=== PATIENT | female | born 1995 | race Caucasian/White ===

== ENCOUNTER → 2017-05-19 11:56 | Outpatient (CLI) | payer OTHER | END | disposition home or self-care (01) | LOC: D.US 11:30 | DX: O26.899 Other specified pregnancy related conditions, unspecified trimester (principal) ==

== ENCOUNTER → 2017-07-14 11:59 | Outpatient (CLI) | payer OTHER ==
[~2017-07-14 11:59] MED LIST: IBUPROFEN800 MG PO
[2017-09-18 05:11] VITALS: BMI 28.3
== END | disposition home or self-care (01) ==
LOC: D.US 11:59
DX: Q37.9 Unspecified cleft palate with unilateral cleft lip (principal)

== ENCOUNTER → 2017-08-18 12:01 | Outpatient (CLI) | payer OTHER, MEDICAID ==
[2017-09-18 05:11] VITALS: BMI 28.3
== END | disposition home or self-care (01) ==
LOC: D.US 11:30
DX: O35.8XX0 Maternal care for other (suspected) fetal abnormality and damage, not applicable or unspecified (principal); Z3A.00 Weeks of gestation of pregnancy not specified

== ENCOUNTER → 2017-09-16 10:40 | Outpatient (CLI) | payer OTHER, MEDICAID ==
[2017-09-18 05:11] VITALS: BMI 28.3
== END | disposition home or self-care (01) ==
LOC: D.LDO 10:40
DX: O48.0 Post-term pregnancy (principal); Z3A.40 40 weeks gestation of pregnancy

== ENCOUNTER 2017-09-18 04:57 | Inpatient (IN) | payer OTHER, MEDICAID ==
[~2017-09-18] VITALS: Ht 165.1 cm; Wt 77.1 kg
[2017-09-18 05:11] VITALS: BP 101/67; Ht 165.1 cm; Wt 77.1 kg
[2017-09-18 06:52] LABS: HEMATOCRIT 36.8 % (36.0-48.0); HEMOGLOBIN 12.6 g/dL (12-16); MCHC 34.2 g/dL (31.0-37.0); MCV 87.6 fL (80.0-100.0); MEAN PLATELET VOLUME 10.7 fL (7.4-10.4); RBC 4.2 10x6/uL (4.00-5.40); RDW 13.8 % (11.5-14.5); WBC 7.3 10x3/uL (4.8-10.8)
[2017-09-18 08:11] LABS: APPEARANCE HAZY (CLEAR); BILIRUBIN NEGATIVE (NEGATIVE); COLOR YELLOW (YELLOW); GLUCOSE NEGATIVE (NEGATIVE); KETONE NEGATIVE (NEGATIVE); NITRITE NEGATIVE (NEGATIVE); PROTEIN 1+ mg/dL (NEGATIVE)
[2017-09-18 08:12] LABS: BACTERIA MANY /hpf (NONE SEEN); MUCUS >1+ /lpf (NONE SEEN); RED CELLS - URINE RARE /hpf (0-5)
--- NOTE | 2017-09-18 19:00 | NUR ---
PATIENT REPORT RECIEVED FROM AM SHIFT TO ASSUME PATIENT CARE.
--- NOTE | 2017-09-18 19:54 | NUR ---
TYLENOL 3 ONE TAB PO AT THIS TIME FOR 6/10 PERINEAL PAIN PER LMCEARL.RN
[2017-09-18 20:31] VITALS: BP 103/67
--- NOTE | 2017-09-18 20:34 | NUR ---
PATIENT LAYING IN BED, FAMILY VISITING AND IN OPEN CRIB AT BEDSIDE. VS WNL, PAD AND PANTIES IN PLACE. PT STATES THAT HER BLEEDING IS SMALL. FUNDUS FIRM,MIDLINE ONE ABOVE U. RESPIRATIONS EVEN AND NON LABORED, PAIN 3/10 AFTER MEDICATION. (SEE EMAR) BED LOCKED IN LOW POSITION, TRAY TABLE AND CALL CURRY IN REACH. SHIFT ASSESSMENT COMPLETED. PATIENT ENCOURAGED TO CALL WITH ANY NEEDS.
--- NOTE | 2017-09-18 20:34 | NUR ---
PATIENT RATES HER PAIN 3/10 AT THIS TIME. NO NEEDS IDENTIFIED
--- NOTE | 2017-09-18 21:52 | NUR ---
PATIENT LYING IN BED, VOIDED WITHOUT DIFFICULTY. FLOWER PAD AND PANTIES IN PLACE, PT STATES HER BLEEDING REMAINS SMALL. DENIES PAIN. FAMILY REMAINS AT BEDSIDE. BED LOCKED IN LOW POSITION. CALL CURRY AND TRAY TABLE IN REACH. PATIENT ENCOURAGED TO CALL WITH ANY NEEDS.
--- NOTE | 2017-09-18 23:00 | NUR ---
PATIENT RESTING QUIETLY IN BED, FAMILY REMAINS AT BEDSIDE. DENIES NEEDS OR PAIN AT THIS TIME. BED LOCKED IN LOW POSITION. CALL CURRY IN REACH, INSTRUCTED TO CALL WITH ANY NEEDS.
--- NOTE | 2017-09-19 00:52 | NUR ---
PATIENT AMBULATING IN ROOM. RATES HER PAIN 7/10 CRAMPING IN ABDOMEN. TYLENOL 3 ONE TAB PO AT THIS TIME PER MD ORDERS. ICE WATER PROVIDED, PT DENIES OTHER NEEDS. WILL CONTINUE TO MONITOR
--- NOTE | 2017-09-19 02:20 | NUR ---
RN TO BEDSIDE FOR ROUNDS. PT RESTING QUIETLY WITH EYES CLOSED ON LEFT SIDE. RESPIATIONS REGULAR AND UNLABORED, NO S/S OF DISTRESS NOTED. REMAIN'S AT BEDSIDE IN OPEN CRIB, RESPIRATIONS REGULAR AND UNLABORED, NO S/S OF DISTRESS NOTED. FAMILY MEMBER REMAINS AT BEDSIDE WITH PT, RESTING ON COUCH. BED IN LOW POSITION WITH UPPER SIDE RAILS RAISED X2. CL AND PHONE WITHIN REACH. WILL CONT TO MONITOR AND ASSIST PRN.
--- NOTE | 2017-09-19 03:39 | NUR ---
DERMOPLAST,TUCKS PADS, AND EPIFOAM PROVIDED PER MD ORDERS FOR PERINEAL DISCOMFORT. PT EDUCATED ON USE. MOTRIN 600MG PO AT THIS TIME WITH WATER FOR 3/10 PERINEAL PAIN. PATIENT SITTING UP IN BED HOLDING INFANT. SIDE RAILS UPX2, BED LOCKED IN LOW POSITION. TRAY TABLE AND CALL CURRY IN REACH. PT INSTRUCTED TO CALL WITH ANY NEEDS.
--- NOTE | 2017-09-19 04:30 | NUR ---
patient sleeping, no s/s of distress noted. call hutton and tray table in reach, bed locked in low position. family remains at bedside
--- NOTE | 2017-09-19 05:17 | NUR ---
patient sleeping, easily aroused to verbal. tylenol 3 one tab po given at this time per pt request for abdominal cramps. (see emar) pt denies other needs. call hutton and tray table within reach. family remains at bedside for assistance and support.
--- NOTE | 2017-09-19 06:08 | NUR ---
PATIENT WALKING IN ROOM, STATES THAT HER PAIN IS GETTING BETTER, 12/20. DENIES NEEDS, WILL CONTINUE TO MONITOR
[2017-09-19 06:15] LABS: RAPID PLASMA REAGIN Non Reactive (Non Reactive)
[2017-09-19 06:22] LABS: HEMATOCRIT 35.9 % (36.0-48.0); MCH 29.7 pg (26.0-34.0); MCHC 33.4 g/dL (31.0-37.0); MCV 88.9 fL (80.0-100.0); MEAN PLATELET VOLUME 10.5 fL (7.4-10.4); RBC 4.04 10x6/uL (4.00-5.40); RDW 13.8 % (11.5-14.5)
[2017-09-19 06:26] LABS: WBC 11.8 10x3/uL (4.8-10.8)
--- NOTE | 2017-09-19 06:56 | OP ---
PATIENT NAME: LIZA SPANGLER MEDICAL RECORD: [id number] :96 LOCATION:[id number] ADMISSION DATE:09/18/17 SURGEON: MEREDITH MARTINEZ MD DATE OF OPERATION: 09/18/2017 Delivery Note Spontaneous vaginal delivery of female infant weighing 7 pounds 11 ounces, 9 and 9 Apgars, epidural anesthesia over a second-degree midline episiotomy repaired using 2-0 and 3-0 chromic suture, is female, has a cleft lip and cleft palate. ESTIMATED BLOOD LOSS: 400 cc. COMPLICATIONS OF DELIVERY: None. TRANSINT:[id number] Voice Confirmation ID: [id number] DOCUMENT ID: [id number] MEREDITH MARTINEZ MD at 0656 CC: [id number] DICTATION DATE: 09/18/17 1413 GRAIN SPOUTER: 09/18/17 1452 ADM IN [place] [id number] [place] [address]
--- NOTE | 2017-09-19 07:10 | NUR ---
REPORT TO AM SHIFT TO ASSUME PATIENT CARE.
--- NOTE | 2017-09-19 07:45 | NUR ---
RESP EVEN AND UNLABORED, BREAKFAST TRAY TO ROOM. C/L IN EASY REACH.
[2017-09-19 08:00] VITALS: BP 123/65
--- NOTE | 2017-09-19 08:00 | NUR ---
RESP EVEN AND UNLABORED, AAOX3, VSS, AFEBRILE, HOLDING IN ARMS, BONDING NOTED. HEART RRR, LUNGS CTAB, BS +X4 QUADS, DENIES FLATUS, FF AT MIDLINE U/U, NO CLOTS EXPRESSED ON FUNDAL MASSAGE. KUMAR FREELY, CAP REFILL <3 SECS TO BUE AND BLE, NEGATIVE MAURICIO'S SIGN, NO EDEMA NOTED TO BLE/BUE. C/L IN EASY REACH, SR UP X2.
--- NOTE | 2017-09-19 09:37 | NUR ---
RESP EVEN AND UNLABORED, REFUSED SITZ BATH OFFERED, STATES TUCKS/EPIFOAM/DERMAPLAST HELPING WITH ALL PERINEAL DISCOMFORT ALONG WITH MEDICATION PRN. LOCHIA RUBRA LIGHT AMT, EPIS WELL APPROXIMATED, MINIMAL SWELLING TO PERINEUM, NO CLOTS EXPRESSED ON FM. INFANT IN ARMS, C/L IN EASY REACH. DISCUSSED ROOMING IN AND PT DISCHARGE ORDER. STATES UNDERSTANDING.
[2017-09-19] MEDS ORDERED: IBUPROFEN800 MG PO ×2 (09:43→10:01)
--- NOTE | 2017-09-19 10:05 | NUR ---
RESP EVEN AND UNLABORED, DENIES NEEDS AT THIS TIME.
--- NOTE | 2017-09-19 11:54 | NUR ---
THIS RN TO ROOM FOR PT CHECK. PT AND MOTHER TENDING TO , PT C/O PAIN RATED 4/10 AND REQUESTING MOTRIN. MOTRIN ADMIN ORDERED PRN, SEE EMAR FOR DOC. FRESH ICE WATER PROVIDED. PT DENIES FURTHER NEEDS. DISCUSSED POC, PLAN TO ROOM IN AFTER PT EATS LUNCH. SRUx2, CL IN REACH.
--- NOTE | 2017-09-19 13:18 | NUR ---
LUNCH TRAY PICKED UP, ATE 75% . RESP EVEN AND UNLABORED, DENIES NEEDS AT THIS TIME. C/L IN EASY REACH.
--- NOTE | 2017-09-19 14:30 | NUR ---
PT AAOX3, RESP EVEN AND UNLABORED, AMBULATORY IN ROOM. FAMILY IN ROOM. DISCUSSED POC TO INCLUDE DISCHARGE TO ROOMING IN STATUS. STATES UNDERSTANDING.
--- NOTE | 2017-09-19 15:20 | NUR ---
PP DISCHARGE INSTRUCTIONS REVIEWED WITH PT, RX FOR MOTRIN PROVIDED TO PT, ROOMING IN POLICY DISCUSSED AND FORMS SIGNED. TRANSFERRED TO ROOM 1216A AT THIS TIME. PT AMBULATORY WITH PERSONAL BELONGINGS PUSHED VIA WC.
== END 2017-09-19 15:20 | disposition home or self-care (01) | DRG 775 ==
LOC: D.LD 04:57
PROVIDERS: ADMIT Obstetrics & Gynecology
PROC: 10E0XZZ Delivery of Products of Conception, External Approach (ICD-10-PCS; principal; 2017-09-18)
PROC: 0W8NXZZ Division of Female Perineum, External Approach (ICD-10-PCS; 2017-09-18)
DX: O99.824 Streptococcus B carrier state complicating childbirth (principal); Z3A.40 40 weeks gestation of pregnancy; Z37.0 Single live birth; Z87.891 Personal history of nicotine dependence

== ENCOUNTER 2020-01-13 05:17 | Day surgery (SDC) | payer OTHER ==
[~2020-01-13] VITALS: Ht 165.1 cm; Wt 59.0 kg
[2020-01-13 05:43] LABS: BASOPHILS 0.3 % (0-2); EOSINOPHILS 6.3 % (0-7); HEMATOCRIT 38.4 % (36.0-48.0); HEMOGLOBIN 12.2 g/dL (12-16); IMMATURE GRANULOCYTES 1.1 % (0-5); LYMPHOCYTES 43.7 % (15-50); MCH 28.8 pg (26.0-34.0); MCHC 31.8 g/dL (31.0-37.0); MCV 90.6 fL (80.0-100.0); MEAN PLATELET VOLUME 8.8 fL (7.4-10.4); MONOCYTES 5.9 % (2-11); NEUTROPHILS 42.7 % (40-80); RBC 4.24 10x6/uL (4.00-5.40); RDW 13.3 % (11.5-14.5); WBC 6.5 10x3/uL (4.8-10.8)
[2020-01-13 05:56] LABS: PLATELET COUNT 254 10x3/uL (130-400)
[2020-01-13 06:10] LABS: HCG SERUM NEGATIVE (NEGATIVE)
[2020-01-13 06:36] VITALS: BP 101/49; Ht 165.1 cm; Wt 59.0 kg
[2020-01-13] MEDS ORDERED: HYDROCODON-ACE1 EA10 PO (09:58)
--- NOTE | 2020-01-19 06:43 | OP ---
PATIENT NAME: LIZA SPANGLER MEDICAL RECORD: [id number] :96 LOCATION:[facility] ADMISSION DATE: SURGEON: ANGELA CHAKRABORTY MD DATE OF OPERATION: 01/13/2020 PREOPERATIVE DIAGNOSIS: Displaced fracture of the left fifth metacarpal shaft. POSTOPERATIVE DIAGNOSIS: Displaced fracture of the left fifth metacarpal shaft. PROCEDURE: Open reduction and internal fixation of displaced left fifth metacarpal fracture. SURGEON: Angela Chakraborty MD HOUSEPERSON: MARIA Siu INTRAOPERATIVE COMPLICATIONS: None. 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 This was reduced and plated using the 1.7 plate system from [employer] [place]. OPERATIVE SUMMARY IN DETAIL: After obtaining appropriate preoperative orthopedic surgery consent as well as anesthetic consultation, evaluation and clearance, the patient was brought to the operating room and placed on the operating table in supine position. After general laryngeal mask airway was administered, tourniquet was placed about the proximal aspect of the left upper extremity. Left upper extremity was then prepped and draped in routine sterile fashion. The arm was elevated and exsanguinated, tourniquet was inflated to 250 mmHg. Appropriate timeout was taken and agreed upon by all given the patient's unique identifiers. A dorsal lateral incision was made, taken down to the level of the fracture, which was identified. All fracture hematoma was removed. The fracture was then reduced. A gentle plating was done under fluoroscopic guidance to be sure that the patient's rotation deformity had been corrected. The cascade was examined several times. Once adequate fixation had been obtained, the wound was irrigated and closed with 4-0 Prolene in routine interrupted fashion. Sterile dressings were applied. Tourniquet was deflated and then a volar splint holding the finger in extension was applied. Having completed this, the patient was awakened, taken to recovery room in stable condition. All final needle and sponge counts were correct. TRANSINT:[id number] Voice Confirmation ID: [id number] DOCUMENT ID: [id number] ANGELA CHAKRABORTY MD at 0643 CC: [id number] DICTATION DATE: 01/18/20 1201 ANCIENT ART CURATOR: 01/18/20 1345 [facility] 01/13/20 [facility] [address] [place] [address]
== END 2020-01-13 10:10 | disposition home or self-care (01) ==
LOC: D.PAN 05:17 → D.OPS 05:17 → D.PAN 07:30 → D.OPS 07:30 → D.PAN 10:10
PROVIDERS: Anesthesiology; ATTEND Orthopaedic Surgery
DX: S62.327A Displaced fracture of shaft of fifth metacarpal bone, left hand, initial encounter for closed fracture (principal); X58.XXXA Exposure to other specified factors, initial encounter

== ENCOUNTER → 2020-04-03 13:46 | Outpatient (CLI) | payer OTHER, MEDICAID ==
[2020-01-13 06:36] VITALS: BMI 21.6
[~2020-04-03 13:46] MED LIST changes: +HYDROCODON-ACE1 EA10 PO
== END | disposition home or self-care (01) ==
LOC: D.CT 13:30
PROVIDERS: ATTEND Clinical Nurse Specialist Family Health
DX: S62.317A Displaced fracture of base of fifth metacarpal bone, left hand, initial encounter for closed fracture (principal)